=== PATIENT | female | born 1990 | race Caucasian/White ===

== ENCOUNTER 2017-07-30 22:25 | Emergency (ER) | payer OTHER ==
[~2017-07-30] VITALS: Ht 149.9 cm; Wt 44.8 kg
[~2017-07-30 22:25] MED LIST: ALBU6.7H INH; NO HOME MEDS
[2017-07-30] MEDS ORDERED: normal saline 1000ML IV soln IV ONE (23:15)
[2017-07-30] MEDS ORDERED: PNV1TABL75 PO (23:25)
[2017-07-30] MEDS ORDERED: morphine 4 MG/ML inj SYRINge IV ONE (23:30)
[2017-07-30] MEDS ORDERED: ondansetron/PF 4mg/2ml inj IV ONE (23:30)
[2017-07-30 23:45] LABS: BASOPHILS % (AUTO) 0.1 % (0-1); EOSINOPHILS % (AUTO) 0.2 % (0-6); HEMOGLOBIN 14.2 g/dl (12.0-16.0); LYMPHOCYTES # (AUTO) 1.3 X10'3 (1.1-4.8); LYMPHOCYTES % (AUTO) 5.4 % (21-51); MEAN CORPUSCULAR HEMOGLOBIN 30.1 PG (27.0-31.0); MEAN CORPUSCULAR HGB CONC 34.6 % (33.0-36.5); MEAN CORPUSCULAR VOLUME 86.9 FL (78-98); MEAN PLATELET VOLUME 8.5 FL (7.4-10.4); MONOCYTES # (AUTO) 0.5 X10'3 (0-0.9); NEUTROPHILS # (AUTO) 22.7 X10'3 (1.8-7.7); NEUTROPHILS % (AUTO) 92.3 % (42-75); PLATELET COUNT 234 X10'3 (140-440); RED BLOOD COUNT 4.72 X10'6 (4.20-5.60); WHITE BLOOD COUNT 24.6 X10'3 (4.5-11.0)
[2017-07-30 23:46] LABS: COLOR,URINE Yellow (Yellow); GLUCOSE, URINE Negative (Neg); KETONES,URINE Negative (Neg); LEUKOCYTE ESTERASE ,URINE Trace (Neg); NITRITES, URINE Negative (Neg); OCCULT BLOOD,URINE Negative (Neg); PH,URINE 7.5 (4.8-8.0); PROTEIN,URINE Negative (Neg)
[2017-07-30 23:56] LABS: PARTIAL THROMBOPLASTIN TIME 31 SECONDS (22-32); PROTHROMBIN TIME 10.6 SECONDS (9.0-12.0)
[2017-07-31] LABS: ALANINE AMINOTRANSFERASE 16 U/L (12-78); ALBUMIN 4.1 G/DL (3.4-5.0); ALBUMIN/GLOBULIN RATIO 1.1 (1.1-1.5); ALKALINE PHOSPHATASE 96 IU/L (46-116); ANION GAP 12 (8-16); ASPARTATE AMINO TRANSFERASE 16 U/L (10-37); BILIRUBIN,TOTAL 0.7 MG/DL (0.1-1.0); BLOOD UREA NITROGEN 11 MG/DL (7-18); BUN/CREATININE RATIO 15.9 (6.6-38.0); CHLORIDE 104 MMOL/L (99-107); CREATININE 0.69 MG/DL (0.40-0.90); GLUCOSE 127 MG/DL (70-104); MAGNESIUM 1.9 MG/DL (1.5-2.4); POTASSIUM 3.5 MMOL/L (3.5-5.1); SODIUM 141 MMOL/L (135-145); TOTAL PROTEIN 7.8 G/DL (6.4-8.2); eGFR > 90 ML/MIN
[2017-07-31 00:01] LABS: CLARITY,URINE SLIGHTLY CLOUDY (Clear); UA COLLECTION TYPE CLN CATCH MIDSTREAM
[2017-07-31 00:02] LABS: BACTERIA,URINE FEW /HPF (Neg); RBC,URINE 0-2 /HPF (0-2); SQUAMOUS EPITHELIAL CELL,UR FEW /LPF (FEW)
[2017-07-31] MEDS ORDERED: piperacillin/tazo 4.5gm/100ml 100 ML IV SCH (00:04)
[2017-07-31 00:08] LABS: PLATELET ESTIMATE NORMAL; TOTAL CELLS COUNTED 100
[2017-07-31 00:14] LABS: URINE HCG NEGATIVE (NEG)
[2017-07-31] MEDS ORDERED: PRED10TA23 PO (00:19)
[2017-07-31] MEDS ORDERED: ATRIN IH (00:19)
[2017-07-31] MEDS ORDERED: LEVO750T21 PO (00:19)
[2017-07-31] MEDS ORDERED: ALBU8.5H8 INH (00:19)
[2017-07-31] MEDS ORDERED: CefTRIAXone 2gm/D5W 50ml 50 ML IV ONE (01:35)
[2017-07-31] MEDS ORDERED: phenazopyridine 100mg tablet PO ONE (01:35)
[2017-07-31] MEDS ORDERED: ketorolac trometh. 30mg/ml inj. IV ONE (01:40)
[2017-07-31] MEDS ORDERED: CIP750T PO (01:46)
[2017-07-31] MEDS ORDERED: PHEN-824 PO (01:46)
[2017-07-31 02:29] VITALS: BP 111/66
[2017-07-31] MEDS ORDERED: lactobacillus rhamnosus 10,000 MMU CELLS/CAPSULE PO SCH (08:00)
== END 2017-07-31 02:31 | disposition home or self-care (01) ==
LOC: ER 22:25
DX: N30.90 Cystitis, unspecified without hematuria (principal); F12.90 Cannabis use, unspecified, uncomplicated; Z98.890 Other specified postprocedural states; Z79.2 Long term (current) use of antibiotics; Z79.899 Other long term (current) drug therapy
CPT/HCPCS: 36415; 71045; 74176; 80053; 81001; 81025; 83605; 83735; 84145; 85025; 85610; 85730; 87040; 87088; 93005; 96365; 96367; 96375; 99285; J0696; J1885; J2270; J2405; J2543; J7030; 81003

== ENCOUNTER 2017-09-23 13:10 | Emergency (ER) | payer OTHER ==
[~2017-09-23] VITALS: Ht 149.9 cm; Wt 46.6 kg
[~2017-09-23 13:10] MED LIST changes: -ALBU6.7H INH; -NO HOME MEDS; +PHEN-824 PO; +PNV1TABL75 PO
[2017-09-23 13:12] VITALS: BP 113/89
[2017-09-23 13:49] LABS: CLARITY,URINE CLOUDY (Clear); COLOR,URINE YELLOW (Yellow); GLUCOSE, URINE NEGATIVE (Neg); KETONES,URINE TRACE mg/dl (Neg); LEUKOCYTE ESTERASE ,URINE NEGATIVE (Neg); NITRITES, URINE NEGATIVE (Neg); OCCULT BLOOD,URINE NEGATIVE (Neg); PROTEIN,URINE TRACE mg/dl (Neg); UA COLLECTION TYPE CLN CATCH MIDSTREAM
[2017-09-23 13:50] LABS: URINE HCG POSITIVE (NEG)
[2017-09-23 14:03] LABS: BACTERIA,URINE 2+ /HPF (Neg); MUCUS STRANDS MANY /LPF (Neg); SQUAMOUS EPITHELIAL CELL,UR MANY /LPF (FEW)
[2017-09-23 14:04] LABS: RBC,URINE 0-2 /HPF (0-2); WBC,URINE 0-4 /HPF (0-4)
[2017-09-23] MEDS ORDERED: NITR100C6 PO (16:00)
== END 2017-09-23 16:11 | disposition home or self-care (01) ==
LOC: ER 13:11
DX: O20.0 Threatened abortion (principal); O23.41 Unspecified infection of urinary tract in pregnancy, first trimester; F12.90 Cannabis use, unspecified, uncomplicated; Z79.899 Other long term (current) drug therapy; Z3A.01 Less than 8 weeks gestation of pregnancy
CPT/HCPCS: 36415; 76817; 81001; 81025; 84702; 86900; 86901; 99285

== ENCOUNTER 2017-11-08 12:31 | Emergency (ER) | payer OTHER ==
[~2017-11-08] VITALS: Ht 154.9 cm; Wt 46.8 kg
[~2017-11-08 12:31] MED LIST changes: +NITR100C6 PO
[2017-11-08 13:19] LABS: CLARITY,URINE SLIGHTLY CLOUDY (Clear); COLOR,URINE YELLOW (Yellow); GLUCOSE, URINE NEGATIVE (Neg); KETONES,URINE NEGATIVE (Neg); LEUKOCYTE ESTERASE ,URINE NEGATIVE (Neg); NITRITES, URINE NEGATIVE (Neg); OCCULT BLOOD,URINE TRACE-INTACT (Neg); PH,URINE 6.5 (4.8-8.0); PROTEIN,URINE NEGATIVE (Neg); UROBILINOGEN,URINE 0.2 E.U/dL (0.2-1.0)
[2017-11-08 13:26] LABS: UA COLLECTION TYPE CLN CATCH MIDSTREAM
[2017-11-08 13:27] LABS: MUCUS STRANDS MANY /LPF (Neg); SQUAMOUS EPITHELIAL CELL,UR MANY /LPF (FEW)
[2017-11-08 13:28] LABS: BACTERIA,URINE 1+ /HPF (Neg); RBC,URINE 0-2 /HPF (0-2); WBC,URINE 0-4 /HPF (0-4)
[2017-11-08 14:00] VITALS: BP 118/70
== END 2017-11-08 14:48 | disposition home or self-care (01) ==
LOC: ER 12:31
DX: O03.4 Incomplete spontaneous abortion without complication (principal); F12.90 Cannabis use, unspecified, uncomplicated; Z79.899 Other long term (current) drug therapy; Z3A.01 Less than 8 weeks gestation of pregnancy
CPT/HCPCS: 36415; 76856; 81001; 84702; 99285

== ENCOUNTER 2024-12-01 20:41 | Emergency (ER) | payer BC, MEDICAID ==
[~2024-12-01] VITALS: Ht 149.9 cm; Wt 60.0 kg
[2024-12-01 21:05] VITALS: BP 126/87; PULSE 90; RESP 18; O2SAT 99
[2024-12-01 21:44] LABS: INFLUENZA TYPE A ANTIGEN RAPID NEGATIVE (Negative); INFLUENZA TYPE B ANTIGEN RAPID NEGATIVE (Negative)
--- NOTE | 2024-12-01 21:50 | RADIOLOGY REPORT ---
EXAM: DI CHEST,SINGLE VIEW CLINICAL HISTORY: Fever TECHNIQUE: Single PA view of the chest WID: COMPARISON: None FINDINGS: Lines and tubes: None Chest: The heart size and pulmonary vasculature is within normal limits. No pleural effusion, pneumothorax, or consolidation. The osseous structures are grossly intact. IMPRESSION: 1. No acute cardiopulmonary abnormality.
[2024-12-01 21:52] LABS: MEAN PLATELET VOLUME 7.8 FL (7.4-10.4); RED CELL DISTRIBUTION WIDTH 17.3 % (11.5-14.5)
[2024-12-01 21:59] LABS: CREATININE 0.53 MG/DL (0.40-0.90); TOTAL CARBON DIOXIDE 27.8 MMOL/L (24-32); eCRCL 102 ML/MIN; eGFR > 90 ML/MIN
[2024-12-01 22:52] LABS: LYMPHOCYTES % (MANUAL) 63.0 % (21-51); MONOCYTES % (MANUAL) 5.0 % (2-12); NEUTROPHILS % (MANUAL) 30.0 % (42-75); REACTIVE LYMPHOCYTES % 2.0 % (0-0)
[2024-12-01 22:53] LABS: PLATELET ESTIMATE NORMAL
[2024-12-01 23:25] VITALS: TEMP 98.9
[2024-12-02 00:19] LABS: LEUKOCYTE ESTERASE ,URINE NEGATIVE (Neg); NITRITES, URINE NEGATIVE (Neg); OCCULT BLOOD,URINE NEGATIVE (Neg)
[2024-12-02 00:20] LABS: UA COLLECTION TYPE NON-SPECIFIED
== END 2024-12-01 23:25 | disposition left against medical advice (07) ==
LOC: ER 20:41
DX: R50.9 Fever, unspecified (principal); Z53.21 Procedure and treatment not carried out due to patient leaving prior to being seen by health care provider
CPT/HCPCS: 36415; 71045; 80048; 81003; 83605; 84145; 85007; 85025; 87040; 87804; 99281